=== PATIENT | female | born 1950 | race Caucasian/White ===

== ENCOUNTER 2019-02-12 06:13 | Inpatient (IN) | payer OTHER ==
[2019-01-28 09:11] LABS: ABSOLUTE BASOPHILS 0.1 thou/uL (0.0-0.2); ABSOLUTE EOSINOPHILS 0.4 thou/uL (0.0-0.7); ABSOLUTE LYMPHOCYTES 1.4 thou/uL (0.8-5.3); ABSOLUTE MONOCYTES 0.9 thou/uL (0.0-1.2); ABSOLUTE NEUTROPHILS 4.8 thou/uL (1.6-8.1); BASOPHILS 0.7 %; EOSINOPHILS 5.9 %; HEMATOCRIT 37.2 % (37.0-47.0); HEMOGLOBIN 12.4 gm/dL (12.0-15.0); LYMPHOCYTES 18.1 %; MCH 30.9 pg (26.0-34.0); MCHC 33.4 g/dL (28.0-37.0); MCV 92.4 fL (80.0-100.0); NUCLEATED RBCS 0 /100WBC; PLATELET COUNT* 316 thou/uL (150-400); POLYS 63.3 %; RBC 4.02 mil/uL (4.20-5.00); RDW-CV 13.7 % (10.5-14.5); WBC 7.5 thou/uL (4.0-11.0)
[2019-01-28 09:22] LABS: APTT 26.3 Seconds (25.0-31.3); PROTIME 10.4 Seconds (9.20-11.50)
[2019-01-28 09:29] LABS: ALBUMIN 3.5 g/dL (3.4-5.0); CALCIUM 9.5 mg/dL (8.5-10.1); CREATININE 0.9 mg/dL (0.6-1.3); POTASSIUM 4.3 mmol/L (3.5-5.1); TOTAL BILIRUBIN 0.4 mg/dL (<0.1-1.0); TOTAL PROTEIN 7.4 g/dL (6.4-8.2)
[2019-01-28 10:48] LABS: ESR (SEDRATE) 18 mm/hr (0-30)
--- NOTE | 2019-01-28 16:59 | EKG ---
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: LILY : 1950 Requested By: Natalio Fall Order Number: [id number] Reading MD: Jair Smith Measurements Intervals [place] Rate: 79 P: 58 FL: 150 QRS: -39 QRSD: 135 T: 36 QT: 406 QTc: 466 Interpretive Statements Sinus rhythm Left atrial enlargement, possible Right bundle branch block Compared to ECG 12/29/2012 09:30:45 Atrial abnormality now present Left-axis deviation no longer present Electronically Signed On 01-28-2019 16:59:00 CDT by Jair Smith [email or web address] <ELECTRONICALLY SIGNED> By: Jair Smith MD, [facility] 01/28/19 1659 9 9 Jair Smith MD, FACC /EPI
[2019-01-29 02:10] LABS: GLYCOHEMOGLOBIN (HGB A1C) 5.4 % (4.8-5.6)
[~2019-02-12] VITALS: Ht 160 cm; Wt 99.8 kg
--- NOTE | ~2019-02-12 | H ---
[address] [address] HISTORY AND PHYSICAL Name: TORRES MARTI Room: [address]#: [id number] Admission: 02/12/19 Attend Phys: Shivam Gaviria Discharge: 02/15/19 Date of : 48 Report #: [id number] THIS REPORT FOR: //name// For History and Physical please refer to the consultation note in the patient's medical record. By: [id number] Records Staff STANLEY /DENEEN
[~2019-02-12 06:13] MED LIST: ALLEGRA180 MG PO; APAP650 PO; ASPIRIN EC325 M1 PO; ASPIRIN325; BIOTIN1 MG PO; BUPROPION XL150 MG PO; CALCIUM 600 +1 EA11 PO; CALCIUM 600 +1 EAC9 PO; CALCIUM PO; CARAFATE1 GM/10 ML PO; CO Q 10 PO; CO Q-1010 MG PO; COLACE100 MG PO; COQ-10100 MG PO; DEXILANT60 MG PO; ENOXAPARIN30 MG/0.1; ENOXAPARIN30 MG/0.3 SQ; ENOXAPARIN40 MG/0.1 INJECTION; FIBER SELECT G1 EACH PO; FISH OIL 1,0001 EAC8 PO; FLEXERIL PO; FOLIC ACID 40400 MCG PO; FOLIC ACID PO; FOLIC ACID0.4 MG PO; FOLIC ACID0.8 MG PO; GINKGO BILOBA PO; GINKGO BILOBA120 MG PO; GINKGO BILOBA40 M1 PO; GLUCOSAMINE &1 EAC1 PO; GLUCOSAMINE CH1 EAC2 PO; GREEN COFFEE BEAN PO; HYDROXYZINE HCL25 M2; LANSOPRAZOLE30 MG PO; LEVOTHYROXINE150 MCG PO; LOSARTAN POTAS100 MG PO; LOSARTAN-HCTZ1 EAC2 PO; LOVENOX SUBQ; MAGNESIUM250 M1 PO; MELOXICAM7.5 MG PO; MICARDIS40 MG PO; MIRALAX255 GM; MOM; MULTIVITAMINS PO; MULTIVITAMINS1 EAC7 PO; NEURONTIN 300M300 M2; NORCO 5-325 TA1 EAC2 PO; NORCO 5-325 TA1 EACH; NYQUIL PO; OSTEO BI-FLEX1 EAC1 PO; OSTEO BI-FLEX1 EACH PO; OXYCODONE HCL 55 MG PO; PRESERVISION A1 EACH PO; PREVACID30 MG PO; PROBIOTIC1 EAC1 PO; PROBIOTIC1 EACH PO; PROBIOTICS PO; ROXICODONE5 MG; SKELAXIN 800 M800 M1 PO; TUMERIC PO; TYLENOL ARTHRI650 MG PO; VITAMIN D1000 UNI1 PO; ZANTAC 150MG T150 M1 PO; ZOFRAN ODT4 MG; ZOFRAN4 MG PO; ZYRTEC10 M5 PO; [UNRECOGNIZED DRUG - OTHER] PO
[2019-02-12 07:27] VITALS: BP 149/63
[2019-02-12 13:40] VITALS: BP 135/68
--- NOTE | 2019-02-12 18:49 | NUR ---
PATIENT ARRIVED TO UNIT AT APPROX 1330. ALERT AND ORIENTED X4. ASSESSMENT COMPLETED AND CHARTED. VSS ON ROOM AIR. PAIN MANAGED WITH PERCOCET. FLUIDS AND ANTIBIOTICS INFUSED ORDERED. PATIENT UP WITH GAIT BELT AND WALKER, REQUIRES EXTRA TIME WHEN NEEDING ASSISTANCE TO TIDY UP THE ROOM AND GET EVERYTHING WITHIN REACH. NO OTHER COMPLAINTS. FALL PRECAUTIONS IN PLACE. CALL LIGHT WITHIN REACH. HOURLY ROUNDS COMPLETED. NURSING WILL CONTINUE TO MONITOR.
[2019-02-13] VITALS: BP 140/63
[2019-02-13 04:00] VITALS: BP 123/61
[2019-02-13 04:30] LABS: HEMATOCRIT 29.2 % (37.0-47.0); HEMOGLOBIN 9.7 gm/dL (12.0-15.0)
--- NOTE | 2019-02-13 05:56 | NUR ---
PATIENT HAS SLEPT OFF AND ON DURING THE NIGHT. VSS ON 2L 02 VIA NASAL CANNULA. MEDICATIONS GIVEN ORDERED AND CHARTED. ASSESSMENT CHARTED. PATIENT IS UP WITH ASSIST X 1 WITH GAITBELT AND WALKER TO THE [facility]. DRESSING TO RIGHT HIP IS C/D/I, ICE PACE, PURVI HOSE AND SCD'S IN PLACE. IV IN LEFT FOREARM-1/2 NS @ 75ML/HR. PATIENT INSTRUCTED TO USE CALL LIGHT WHEN NEEDING ASSISTANCE. FALL PRECAUTIONS IN PLACE AND HOURLY ROUNDS MADE. WILL CONTINUE WITH PLAN OF CARE AND NURSING TO MONITOR.
[2019-02-13 07:40] VITALS: BP 108/41
[2019-02-13 16:00] VITALS: BP 118/52
--- NOTE | 2019-02-13 16:45 | NUR ---
PT REMAINED ALERT AND ORIENTED. PT RESTING IN BED. UP WITH THERAPY. PAIN MEDS GIVEN ORDERED. FALL RISK PRECAUTIONS IN PLACE. HOURLY ROUNDING COMPLETED. WILL CONTINUE TO MONITOR.
[2019-02-13 21:05] VITALS: BP 124/69
[2019-02-14 00:12] VITALS: BP 142/69
[2019-02-14 03:44] VITALS: BP 129/68
[2019-02-14 04:19] LABS: HEMATOCRIT 28.4 % (37.0-47.0); HEMOGLOBIN 9.6 gm/dL (12.0-15.0)
--- NOTE | 2019-02-14 04:24 | NUR ---
PATIENT HAS REMAINED ALERT AND ORIENTED X 4 THROUGHOUT THE SHIFT AND RESTING QUIETLY ON HOURLY ROUNDS. UP TO BSC WITH MOD ASSIST SUPINE TO SIT AND CGA SIT TO STAND AND THEN TRANSFER TO BEDSIDE WITH WALKER AND GAIT BELT. ADEQUATE VOIDS. PASSING GAS. NO BM. DRESSING RIGHT HIP CLEAN AND DRY. ICE DURING SHIFT. VITAL SIGNS STABLE. MEDICATED X 1 OF THIS WRITING TO GOOD EFEFCT. CONTINUE TO MONITOR.
[2019-02-14 07:25] VITALS: BP 127/63
[2019-02-14 17:02] VITALS: BP 119/57
--- NOTE | 2019-02-14 17:02 | NUR ---
PT REMAINED ALERT AND ORIENTED. PT RESTING IN ROOM. PAIN MEDS GIVEN ORDERED. FALL RISK PRECAUTIONS IN PLACE. WILL CONTINUE TO MONITOR.
[2019-02-14 19:48] VITALS: BP 133/69
[2019-02-15 04:40] VITALS: BP 144/71
--- NOTE | 2019-02-15 04:52 | NUR ---
PATIENT HAS REMAINED ALERT AND ORIENTED X 4 THROUGHOUT THE SHIFT AND RESTING QUIETLY TONIGHT ON HOURLY ROUNDS. SLOW IMPROVEMENT WITH TRANSFERS REQUIRING MIN ASSIST GETTING TO EDGE OF BED AND CGA FOR TRANSFERS/AMBULATION GAIT BELT AND WALKER. SEVERAL MEDICATIONS PROVIDED 02/14/19 FOR BM INCLUDING MILK OF MAGNESIA AT HS. PASSING GAS BUT NOT YET A BM. VITAL SIGNS STABLE. RIGHT HIP/THIGH DRESSING CLEAN AND DRY. MEDICATED FOR PAIN X 2 TO GOOD EFFECT. CONTINUE TO MONITOR.
[2019-02-15 08:45] VITALS: BP 125/61
--- NOTE | 2019-02-15 12:58 | NUR ---
CALLED IN PRESCRIPTION FOR ELIQUIS, WRITTEN, TO PT.S [id number]. COPAY IS $21.93. INFORMED PT. 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 HER WILL BE WITH HER AT DISCHARGE AND CAN HELP HER IF NEEDED. WANTS [facility] AT DISCHARGE. NEED TO CLARIFY WITH HER-WHICH [facility]. THERE ARE SEVERAL. SHE IS NORMALLY INDEPENDENT AT HOME.
--- NOTE | 2019-02-15 13:15 | NUR ---
PT.DECIDED SHE WANTED HOME HEALTH FOR 2 WEEKS AND THEN OUTPT. THERAPY. SHE WANTED WHO SHE HAD 6 YRS AGO. REVIEW OF CHART SHOWED SHE HAD [facility] FOR HOME HEALTH. CONTACTED [facility] AND FAXED DISCHARGE INORMATION AND ORDERS TO HER. THEY WILL CALL PT.TO SET UP APPT.PT.WANTS HER AFTERNOON THERAPY SESSION ADN THEN WILL CALL HER TO COME TO PICK HER UP.
[2019-02-15 13:28] VITALS: BP 125/61
[2019-02-15] MEDS ORDERED: ELIQUIS5 MG PO (14:08)
[2019-02-15] MEDS ORDERED: SENOKOTXTRA17.2 MG PO (14:08)
[2019-02-15] MEDS ORDERED: SKELAXIN 800 M800 M1 PO (14:08)
[2019-02-15] MEDS ORDERED: MELOXICAM7.5 MG PO (14:08)
[2019-02-15] MEDS ORDERED: FLEXERIL PO (14:08)
[2019-02-15] MEDS ORDERED: MIRALAX17 GM PO (14:08)
[2019-02-15 14:34] VITALS: BP 125/61
[2019-02-15] MEDS ORDERED: TRAMADOL 50 MG50 MG PO (14:59)
[2019-02-15] MEDS ORDERED: PERCOCET 5-3251 EACH PO (15:01)
[2019-02-15] MEDS ORDERED: ELIQUIS2.5 MG PO (15:02)
[2019-02-15 15:15] VITALS: BP 125/61
[2019-02-15 15:18] VITALS: BP 125/61
--- NOTE | 2019-02-15 19:47 | NUR ---
I ASSUMED CARE OF THE PATIENT AT 0700. SHE IS ALERT AND ORIENTED X4 AND IS UP WITH ASSIST OF 1, WALKER, GAITBELT. PATIENT IS POST OP DAY 3 FROM A TOTAL HIP. DRESSING IS C/D/I. SHE HAS ON BILATERAL FOOT PUMPS. SHE USES THE COMMODE APPROPRIATELY. CASE MANAGMENT IS WORKING ON HOME HEALTH CARE. SHE HAS THIGH HIGH PURVI HOSE. PATIENT HAD A FULL SHOWER TODAY. HOURLY ROUNDING IS COMPLETED AND PATIENT NEEDS ARE MET. PAIN IS MANAGED WITH PRN MEDS. SHE IS UNABLE TO HAVE A BOWEL MOVEMENT. SHE WAS DISCHARGED TO HOME WITH HER AND SCRIPTS.
--- NOTE | 2019-02-19 07:43 | OP ---
[address] [address] OPERATIVE REPORT Name: TORRES MARTI Room: [address]#: [id number] Admission: 02/12/19 Attend Phys: Shivam Gaviria Discharge: 02/15/19 Date of : 48 Report #: [id number] THIS REPORT FOR: //name// CC: Natalio Murphy DATE OF SERVICE: 02/12/2019 PREOPERATIVE DIAGNOSIS: Primary osteoarthritis, right hip. POSTOPERATIVE DIAGNOSIS: Primary osteoarthritis, right hip. PROCEDURE: Right total hip arthroplasty via direct anterior approach. SURGEON: Natalio Fall DO AIR TRAFFIC CONTROL OPERATOR: Chung Russo DO ANESTHESIA: General with local periarticular block. FLUIDS: Lactated Ringer's. ANTIBIOTICS: 2 grams Ancef IV preoperatively. DRAINS: None. SPECIMENS: None. BLOOD LOSS: 200 mL. COMPLICATIONS: None. ORTHOPEDIC IMPLANTS: Biomet 50 mm G7 acetabular shell with two 6.5 mm bone screws, both 25 mm in length for additional acetabular fixation; 36 mm inner diameter; E1 high wall polyethylene liner; size 9 standard offset Taperloc complete stem and a +3 mm neck length modular ceramic head. Other 1 gram tranexamic acid IV preoperatively. HISTORY: The patient is a 68-year-old female with longstanding history of right hip pain. She has known advanced osteoarthritis of her right hip. Radiographs show [id number] articulation, subchondral sclerosis and periarticular osteophytes. She has failed nonoperative treatments in the form of nonsteroidal anti-inflammatories by mouth as well as physical therapy. She presents today for right total hip arthroplasty with direct anterior approach. [facility], [address] [address] OPERATIVE REPORT Name: TORRES MARTI Room: [address] IN [facility].#: [id number] Admission: 02/12/19 Attend Phys: Shivam Gaviria Discharge: 02/15/19 Date of : 48 Report #: [id number] benefits, complications, indications and alternatives were discussed. She has voiced her understanding and signed consent and elected to proceed. Risks include but not limited to fracture, infection, neurovascular injury, continued pain, loss of motion, need for subsequent revision surgery, DVT, PE, DC, stroke, and even . DESCRIPTION OF PROCEDURE: The patient was taken to the operative suite, placed in the supine position and given the benefit of general anesthetic, she was placed on a [place] table against a perineal post. Both feet were placed in traction boots. All bony prominences were well padded. Right hip was sterilely prepped and draped in the usual fashion. Proper operative site was confirmed with standard timeout technique. A direct anterior approach was taken to the right hip. Lateral circumflex vessels were identified, cauterized and incised. Anterior capsule was exposed. It was treated with Aquamantys for hemostasis and an anterior capsulectomy was performed. The femoral neck was exposed. At this point, a femoral neck cut was then made with an oscillating saw and utilizing a napkin ring technique, the head and neck were removed. Retractors were repositioned for acetabular exposure. Labral debridement was performed with Bovie knife and then reaming was initiated up in a sequential fashion to a size 49 reamer. C-arm fluoroscopic images confirmed appropriate depth and circumference of reaming. Thorough irrigation of the acetabulum showed circumferential punctate bleeding. I then implanted the above-mentioned acetabular shell in a press-fit fashion under C-arm fluoroscopic guidance to confirm appropriate positioning. Two 6.5 mm bone screws were placed for additional acetabular fixation and the above-mentioned polyethylene liner was implanted. I then turned my attention to the proximal femur. Appropriate capsular releases were performed along with leg positioning and the external elevating hook of the [place] table, I was able to achieve excellent proximal femoral exposure. Intramedullary canal was accessed with a rattail rasp and then broaching was initiated up in sequential fashion to a size 9 broach, which was left in place for trialing. Trialing of a standard offset +3 mm neck length construct showed excellent intraoperative stability. C-arm fluoroscopic images confirmed appropriate implant placement and sizing as well as leg length and offset. Hip was dislocated, trials were removed. Final stem was then implanted in a press-fit fashion and a final head was impacted on the [place] taper. The hip was reduced. Intraoperative stability checks were excellent. Final C-arm fluoroscopic images confirmed appropriate implant placement sizing as well as leg length and offset. Thorough irrigation was performed. Hemostasis was shown to be appropriate. Periarticular blocks utilized containing Marcaine, morphine, Toradol, epinephrine and normal saline. Tensor fascia was then closed with a running Quill suture. Subcuticular closure was performed with 2-0 Vicryl in simple inverted interrupted fashion. Skin was closed with a running 3-0 V-Loc subcuticular suture with Dermabond on the skin. Sterile dressings were applied. The patient tolerated the procedure well. Sponge and needle counts were correct x 2. The patient was taken to recovery room in stable condition. [place], [place] [address] OPERATIVE REPORT Name: TORRES MARTI Room: [address] IN [facility]#: [id number] Admission: 02/12/19 Attend Phys: Shivam Gaviria Discharge: 02/15/19 Date of : 48 Report #: [id number] Natalio Fall DO attest that I was present and scrubbed in for the entirety of the case excluding skin closure. <ELECTRONICALLY SIGNED> By: Natalio Fall DO 02/19/19 0743 [id number] [id number] Fall DO /nt
== END 2019-02-15 16:13 | disposition home health service (06) | DRG 470 ==
LOC: M.TBA 06:13 → M.PRE 08:28 → M.TBA 09:33 → M.ORTHSURG 09:33 → M.PRE 10:16 → EDSTATUS 12:56 → M.PRE 12:58 → M.ORTHSURG 13:18
PROVIDERS: Orthopaedic Surgery; ADMIT Internal Medicine
PROC: 0SR902A Replacement of Right Hip Joint with Metal on Polyethylene Synthetic Substitute, Uncemented, Open Approach (ICD-10-PCS; principal; 2019-02-12)
DX: M16.11 Unilateral primary osteoarthritis, right hip (principal); M79.7 Fibromyalgia; E03.9 Hypothyroidism, unspecified; I10 Essential (primary) hypertension; K58.9 Irritable bowel syndrome, unspecified; M17.0 Bilateral primary osteoarthritis of knee; Z96.653 Presence of artificial knee joint, bilateral; Z88.2 Allergy status to sulfonamides; Z88.8 Allergy status to other drugs, medicaments and biological substances